=== PATIENT | female | born 1995 | race Caucasian/White ===

== ENCOUNTER 2025-08-02 09:54 | Emergency (ER) | payer OTHER, MEDICAID, SELFPAY ==
--- NOTE | 2025-08-02 09:55 | ED.FEMALEGU ---
HPI - Female Genitourinary General Chief complaint: Urogenital-Female Stated complaint: uti/yeast infection symptoms Time Seen by Provider: 08/02/25 09:54 Source: patient Mode of arrival: ambulatory Limitations: no limitations History of Present Illness HPI Narrative: Luiza is a 30-year-old female patient presenting to the clinic today with complaints of possible UTI/yeast infection x4 days. She is reporting some vaginal itching as well as burning with urination, urinary frequency, and urinary urgency. States her symptoms started 4 days ago. Had some leftover amoxicillin so she took this for 2 days. Now she is out of the antibiotics and is now complaining of vaginal itching. Denies any vaginal discharge. When asked about concerns for STI she would like testing completed. Denies any flank pain or abdominal pain. Does have pain over her bladder. No fevers, chills, body aches. No nausea or vomiting. Patient has taken azo for her symptoms. Related Data Allergies Allergy/AdvReac Type Severity Reaction Status Date / Time No Known Allergies Allergy Verified 08/02/25 10:12 Review of Systems Review of Systems: Pertinent positives per HPI. Patient denies any fever, chills, rash, headache, visual changes, dizziness, cough, runny nose, sore throat, shortness of breath, chest pain, palpitations, nausea, vomiting, diarrhea, constipation, abdominal pain PMFSH Comments At the time of my signature, I reviewed and agree with the nursing past medical, surgical, social, and family history. There is no relevant family history pertinent to the patient complaint. Exam Narrative: General: Well-developed, well nourished, in no apparent distress Head: Normocephalic, atraumatic. Cardio: Regular rate and rhythm, s1 and s2 normal, no murmur appreciated. Resp: Clear to auscultation bilaterally, no rhonchi, rales, wheezing or rubs. Abdomen: Soft, pliable, bowel sounds present in all quadrants, non-tender to palpation, no CVAT tenderness. : Deferred Course Course Emergency Course: Portions of this record may have been created with voice recognition software. Level of Care: Express Care Visit Vital Signs Vital signs: Vital Signs Temperature 36.8 C 08/02/25 10:08 Pulse Rate 73 08/02/25 10:08 Respiratory Rate 18 08/02/25 10:08 Blood Pressure 117/82 08/02/25 10:08 Pulse Oximetry 98 08/02/25 10:08 Oxygen Delivery Room Air 08/02/25 10:08 Temperature 36.8 C 08/02/25 10:08 Pulse Rate 73 08/02/25 10:08 Respiratory Rate 18 08/02/25 10:08 Blood Pressure 117/82 08/02/25 10:08 Pulse Oximetry 98 08/02/25 10:08 Oxygen Delivery Room Air 08/02/25 10:08 Vital signs reviewed MDM - Female Genitourinary MDM Narrative Medical decision making narrative: At the time of visit patient is resting comfortably on the exam table. Patient appears to be nontoxic. Complaints of possible UTI/yeast infection x4 days. She is reporting some vaginal itching as well as burning with urination, urinary frequency, and urinary urgency. States her symptoms started 4 days ago. Had some leftover amoxicillin so she took this for 2 days. Now she is out of the antibiotics and is now complaining of vaginal itching. Denies any vaginal discharge. When asked about concerns for STI she would like testing completed. Denies any flank pain or abdominal pain. Does have pain over her bladder. No fevers, chills, body aches. No nausea or vomiting. Patient has taken azo for her symptoms. Urine culture and STI testing was ordered. On exam patient has some suprapubic tenderness. Abdomen soft and pliable with normal bowel sounds. No CVAT tenderness Labs: Urine culture was sent to the lab. Chlamydia, gonorrhea, Trichomonas testing was ordered and sent to the lab via urine. Plan: I suspect patient has UTI/probable vaginal yeast infection. Prescription for Macrobid and Diflucan was sent to the pharmacy. Will wait for STI testing prior to any treatment. Supportive measures were discussed with the patient and they voiced understanding discharge instructions and agrees to treatment plan. Return precautions reviewed Differential Diagnosis Differential diagnosis: Likely urinary tract infection, cystitis and other (Vaginal yeast infection) Discharge Plan Discharge Clinical Impression: Vagina itching Urinary tract infection Qualifiers: Urinary tract infection type: acute cystitis Hematuria presence: without hematuria Qualified Code(s): N30.00 - Acute cystitis without hematuria Patient Disposition: Home Condition: Stable Instructions: Antibiotic Form, Sexually Transmitted Diseases (ED), Safe Sex Practices (ED), Urinary Tract Infection in Women (ED), Yeast Infection (ED) Additional Instructions: UTI instructions Urine culture sent to the lab Take Macrobid as prescribed Increase fluids and stay well hydrated Wipe front to back. May use wet wipes. Avoid tub baths If sexually active- pee before and after intercourse. Wear cotton panties Avoid tight clothing up against the genitals Follow up with your PCP in 1 week if symptoms persist. STI instructions We have tested you for STIs in the clinic today. Avoid any sexual activity- includes oral, anal, or vaginal intercourse until you get results back and have completed any additional recommended treatment regimens. We will contact you if testing is positive and make sure your treatment was appropriate for the type of STI. If symptoms worsen after treatment recommend reevaluation with your PCP or STI clinic Patient Language: Hungarian Prescriptions: New nitrofurantoin monohyd/m-cryst [Macrobid] 100 mg capsule 100 mg PO Q12H 5 Days Qty: 10 0RF Rx Instructions: must administer with a meal/food fluconazole 150 mg tablet 150 mg PO ONCE Qty: 2 0RF Rx Instructions: as a single dose. May repeat in 72 hours if needed. Follow-up/Referrals: UNKNOWN,DOCTOR [Primary Care Provider] Time of Disposition: 10:15 Quality NIHSS Nursing Documentation ED NIHSS nursing documentation: reviewed/agree
[2025-08-02 10:08] VITALS: BP 117/82; PULSE 73; RESP 18; TEMP 36.8; O2SAT 98
--- OUTSIDE RECORDS SUMMARY | 2025-08-02 10:28 | XMS_ITS | Clinical Summary ---
Author Organization [facility] Medic al [facility] Address [address] [place] [address] Phone Care Team Providers Care Gear Tester Name Role Phone Key Krause [facility] Primary Care Pro vider Allergies No known active allergies Medications busPIRone (BUSPAR) 5 MG Tablet Take 1 Tablet by mouth 2 times daily. 60 Tablet 1 4 Active Additional Information Patient not taking.Reported on 02/15/2025 escitalopram (LEXAPRO) 10 MG Tablet Take 1 Tablet by mouth daily. 30 Tablet 1 4 Active Additional Information Patient not taking.Reported on 02/15/2025 Active Problems Problem Noted Date Diagnosed Date Iron deficiency 04/02/2025 Chronic scapular pain 02/15/2025 Family history of cancer 02/15/2025 Other fatigue 02/15/2025 Scaly patch rash 02/15/2025 Family History Medical History Relation Name Comments Drug Abuse Father Mental Disorder, Other Mother Cancer Paternal Grandmother Relation Name Status Comments Father Alive Mother Alive Paternal Grandmother Alive Breast, had bilateral masectomy Social History Tobacco Use Types Packs/Day Years Used Date Smoking Tobacco: Former Cigarettes S tarted: 11/15/2009 Smokeless Tobacco: Never Alcohol Use Standard Drinks/Week Comments Yes 3 (1 standard drink = 0.6 oz pur e alcohol) 3 drinks per week/ Jazzy [facility] Utilities Answer Date Recorded In the past 12 months has e electric, gas, oil, or water company threatened to shut off services in your home? No 10/27/2024 Social Connection and Isolation Panel Answer Date Recorded In a typical week, how many times do you talk on the phone with family, friends, or neighbors? More than three times a week 10/27/2024 How often do you get togethe r with friends or relatives? Never 10/27/2024 How often do you attend chur ch or druze services? Never 10/27/2024 Do you belong to any clubs o r organizations such as buddhism groups, unions, fraternal or athletic groups, or school groups? No 10/27/2024 How often do you attend meet ings of the clubs or organizations you belong to? Never 10/27/2024 Are you , , di vorced, , never , or living with a partner? 10/27/2024 AUDIT-C Answer Date Recorded Q1: How often do you have a drink containing alc ohol? Monthly or less 10/27/2024 Q2: How many drinks containi ng alcohol do you have on a typical day when you are drinking? 1 or 2 10/27/2024 Q3: How often do you have si x or more drinks on one occasion? Never 10/27/2024 Overall Financial Resource Strain (CARDIA) Answe r Date Recorded How hard is it for you to pa y for the very basics like food, housing, medical care, and heating? Hard 10/27/2024 PHQ-2 Answer Date Recorded Total Score - Questions 1-9 9 10/15 [facility] - Occupational Stress Questionnaire Answer Date Recorded Do you feel stress - tense, restless, nervous, or anxious, or unable to sleep at night because your mind is troubled all the time - these days? Very much 10/27/2024 Exercise Vital Sign Answer Date Recorde d On average, how many days pe r week do you engage in moderate to strenuous exercise (like a brisk walk)? 1 day 10/27/2024 On average, how many minutes do you engage in exercise at this level? 20 min 10/27/2024 Hunger Vital Sign Answer Date Recorded Within the past 12 months, y ou worried that your food would run out before you got the money to buy more. Never true 10/27/20 24 Within the past 12 months, t he food you bought just didn't last and you didn't have money to get more. Never true 10/27/2024 PRAPARE - Transportation Answer Date Re corded In the past 12 months, has l ack of transportation kept you from medical appointments or from getting medications? No 10/15 In the past 12 months, has l ack of transportation kept you from meetings, work, or from getting things needed for daily living? No 10/27/2024 Housing Stability Vital Sign Answer [place] e Recorded In the last 12 months, was t here a time when you were not able to pay the mortgage or rent on time? No 10/27/2024 In the past 12 months, how m any times have you moved where you were living? 1 10/27/2024 At any time in the past 12 m [facility], were you homeless or living in a [facility] (including now)? No 10/27/2024 Sexually Active Control Partners Comments Yes Comments No Sex and Gender Information Value Date Recorded Sex Assigned at Not on file Legal Sex Female 10:41 AM INTERVENTION NURSE Gender Identity Not on file Sexual Orientation Not on file Last Filed Vital Signs Vital Sign Reading Time Taken Comments Blood Pressure 113/85 02/15/2025 2:19 PM CDT Pulse 89 02/15/2025 2:19 PM CDT Temperature 36.2 C (97.2 F) 02/15/2025 2:19 PM CDT Respiratory Rate 16 02/15/2025 2:19 PM CDT Oxygen Saturation 97% 02/15/2025 2:19 PM CDT Inhaled Oxygen Concentration - - Weight 62.2 kg (137 lb 3.2 oz) 02/15/2025 2:19 P M CDT Height 167.6 cm (5' 6) 10/27/2024 11:15 AM INTERVENTION NURSE Body Mass Index 22.14 10/27/2024 11:15 AM INTERVENTION NURSE Plan of Treatment Health Maintenance Due Date Last Done Comments Hepatitis C Virus (HCV) Screening 1996 TdaP Immunization 1996 Hepatitis B Immunization (1 of 3 - 19+ 3-dose series) 2015 Pap Smear 2017 Human Papillomavirus (HPV) Immunization (1 - 3-dose SCDM series) 2023 Influenza Immunization (#1) 2025 SARS-COV-2 Immunization ( season) 2025 Respiratory Syncytial Virus (RSV) Immunization (Adult) (1 - 1-dose 75+ series) 2071 Meningococcal Immunization (ACWY) Aged Out No longer eligible based on patient's age to complete this topic Pneumococcal Immunization Combined Aged Out No longer eligible based on patient's age to complete this topic Rotavirus Immunization Aged Out No lo nger eligible based on patient's age to complete this topic Insurance Care Teams Gear Tester Relationship Specialty Start Date End Date Key Krause PAC PCP - General Physician Lab Associate 10/27/24
--- OUTSIDE RECORDS SUMMARY | 2025-08-02 10:28 | XMS_ITS | Patient Health Record ---
Author Organization [facility] Address [address] [place] [address] Care Team Providers Care Seed Cleaner Operator Name Role Phone Salvador Phelan Unavailable [phone] Allergies No Known Allergies Reason For Referral No Information Social History Tobacco Use: Social History Observation Description Date Details (start date - stop date) Never Smoker NA - NA Tobacco Use/Smoking Question Answer Notes Are you a nonsmoker Section Notes: She denies any family histor y She denies any family histor y Problems Problem Type SNOMED Code ICD Code Onset Dates Problem Status W/U Status Risk Notes Problem Secondary amenorrhea (129821048) Secondary amenorrhea (N91.1) Active confirmed Plan Of Treatment Pending Test Test Name Order Date Test, Urine 07/09/2021 URINALYSIS 07/18/2021 URINALYSIS 07/09/2021 Insurance Providers Payer Name Payer Address Payer Phone Subscriber Number Group Number Insured Name Patient Relationship to Insured Coverage Start Date Coverage End Date [facility] [address] [place] [phone] [id number] Jon Erickson Spouse - patient is the spouse of the insured Medical (General) History Medical History History ICD Code 2 pre-mature births 34 & 28 weeks Surgical History Surgery Date(Month/Year) Hospitalization History Reason Date(Month/Year)
[2025-08-02 20:14] LABS: Trichomonas Vag PCR NOT DETECTED (NOT DETECTE)
== END 2025-08-02 10:37 | disposition home or self-care (01) ==
PROVIDERS: Emergency Provider Nurse Practitioner Family
DX: N89.8 Other specified noninflammatory disorders of vagina (principal); N30.00 Acute cystitis without hematuria; Z11.3 Encounter for screening for infections with a predominantly sexual mode of transmission
CPT/HCPCS: 87077; 87086; 87186; 87491; 87591; 87661; 99203; G0463

== ENCOUNTER 2025-08-21 14:12 | Emergency (ER) | payer OTHER, MEDICAID, SELFPAY ==
[2025-08-21 14:17] VITALS: BP 114/78; PULSE 102; RESP 16; TEMP 37.1; O2SAT 100
[2025-08-21 14:39] LABS: EDCOVIDSCREEN Negative (Negative); EDINFLUASCREEN Negative (Negative); EDINFLUBSCREEN Negative (Negative); EDSTREPNEGPOS1 Negative (Negative)
--- OUTSIDE RECORDS SUMMARY | 2025-08-21 15:07 | XMS_ITS | Patient Health Record ---
Author Organization [facility] Address [address] [place] [address] Care Team Providers Care Wire Drawing Machine Operator Name Role Phone Salvador Phelan Unavailable [phone] Allergies No Known Allergies Reason For Referral [...] W/U Status Risk Notes Problem Secondary amenorrhea (485979675) Secondary amenorrhea (N91.1) Active confirmed Plan Of Treatment Pending Test Test Name Order Date Test, Urine 07/09/2021 URINALYSIS 07/18/2021 URINALYSIS 07/09/2021 Insurance Providers Payer Name Payer Address Payer Phone Subscriber Number Group Number Insured Name Patient Relationship to Insured Coverage Start Date Coverage End Date [facility] [address] [place] [phone] [id number] Jon Erickson Spouse - patient is the spouse of the insured Medical (General) History Medical History History ICD Code 2 pre-mature births 34 & 28 weeks Surgical History Surgery Date(Month/Year) Hospitalization History Reason Date(Month/Year)
--- OUTSIDE RECORDS SUMMARY | 2025-08-21 15:07 | XMS_ITS | Clinical Summary ---
Author Organization [facility] Medic al [facility] Address [address] [place] [address] Phone Care Team Providers Care Brand Leader Name Role Phone eKy Krause [facility] Primary Care Pro vider Allergies No known [...] e alcohol) 3 drinks per week/ Jazzy [facility] Utilities Answer Date Recorded In the [...] often do you attend chur ch or restorationism services? Never 10/27/2024 Do you belong to any clubs o r organizations such as mormonism groups, unions, fraternal or athletic groups, or [...] Total Score - Questions 1-9 9 10/15 [facility] - Occupational [...] any time in the past 12 m [facility], were you homeless or living in a long-term (including now)? No 10/27/2024 Sexually Active Control Partners Comments Yes Comments No Sex and Gender Information Value Date Recorded Sex Assigned at Not on file Legal Sex Female 10:[address] FORMS Gender Identity Not on file Sexual Orientation [...] 167.6 cm (5' 6) 10/27/2024 11:[address] FORMS Body Mass Index 22.14 10/27/2024 11:[address] FORMS Plan of Treatment Health Maintenance Due Date [...] to complete this topic Insurance Care Teams Brand Leader Relationship Specialty Start Date End Date Key Krause PAC PCP - General Physician Swing Manager 10/27/24
--- NOTE | 2025-08-21 16:26 | ED_ITS ---
HPI - General Adult General Chief complaint: Upper Respiratory Infection Stated complaint: chills/body aches/uti Source: patient Mode of arrival: ambulatory Limitations: no limitations History of Present Illness HPI narrative: Patient presents for evaluation of respiratory symptoms. She reports sore throat, cough generalized body aches and fever. She states her symptoms have been present for about a day. Her family members have had similar symptoms. This morning she developed urinary frequency and dysuria. She has a history of UTIs and this feels similar. She has been taking Azo for her symptoms. She d enies any abdominal pain or low back pain. No vaginal discharge. LMP now. She states her children were given abx for tonsillitis. She is concerned about a cold sore to the left lower lip. Related Data Allergies Allergy/AdvReac Type Severity Reaction Status Date / Time No Known Allergies Allergy Verified 08/21/25 14:28 Review of Systems Review of Systems: CONSTITUTIONAL: Reports fever. Denies chills, or sweats. EYES: Denies visual changes, redness, or discharge. ENT: Reports sinus congestion and sore throat. Reports cold sore to left lower lip CARDIOVASCULAR: Denies chest pain, palpitations, or edema. RESPIRATORY: Reports cough. Denies SOB GASTROINTESTINAL: Denies abdominal pain, nausea, vomiting, or diarrhea. GENITOURINARY: Reports dysuria and urinary frequency SKIN: Denies rash or itching. MUSCULOSKELETAL: Reports generalized body aches NEUROLOGIC: Denies headache, numbness, dizziness, or weakness. PSYCHIATRIC: Denies anxiety or depression. PMFSH Past Medical History Medical History Recurrent UTI Surgical History Surgical History No pertinent past surgical history Family History Family History Mother Family history unknown Social History Social History Living arrangements: with family Gender identity (if verbalized by the patient): Female Spiritual care concerns: No Exam Narrative: GENERAL: Well-appearing, well-nourished, and in no acute distress. HEAD: Normocephalic, atraumatic. EYES: PERRLA and EOMI. ENT: Nares clear, no rhinorrhea or epistaxis. Mucous membranes moist. Oropharynx without tonsillar hypertrophy exudate. There is a veiscular lesion noted to the left lower lip. Bilateral TMs pearly jolley nonbulging. NECK: Supple. No adenopathy or masses. No carotid bruits or JVD CHEST: Clear to auscultation. No respiratory distress. No wheezes rales or rhonchi HEART: Regular rate and rhythm. No murmur heard. Normal peripheral pulses. ABDOMEN: Soft, nontender, nondistended, normal active bowel sounds. BACK: No CVA tenderness EXTREMITIES: Normal range of motion. No edema. SKIN: Warm, dry, no rash. NEURO: No focal deficits. Alert and oriented x3. PSYCH: Normal mood and affect. Course Course Emergency Course: This is a 30-year-old female who presented for evaluation of respiratory symptoms. Exam is consistent with viral syndrome. Her strep, COVID, influenza were all negative. In terms of her urinary symptoms, we are unable to run UA due to recent Azo use. Will send urine for culture. Will dc with keflex. She would like valtrex for HSV outbreak. She should follow-up with her primary care provider and go to the ER for worsening symptoms. Patient in agreement with plan of care. Level of Care: Express Care Visit Vital Signs Vital signs: Vital Signs Temperature 37.1 C 08/21/25 14:17 Pulse Rate 102 H 08/21/25 14:17 Respiratory Rate 16 08/21/25 14:17 Blood Pressure 114/78 08/21/25 14:17 Pulse Oximetry 100 08/21/25 14:17 Oxygen Delivery Room Air 08/21/25 14:17 Temperature 37.1 C 08/21/25 14:17 Pulse Rate 102 H 08/21/25 14:17 Respiratory Rate 16 08/21/25 14:17 Blood Pressure 114/78 08/21/25 14:17 Pulse Oximetry 100 08/21/25 14:17 Oxygen Delivery Room Air 08/21/25 14:17 Medical Decision Making Vital Signs Vital Signs: Vital Signs Temperature 37.1 C 08/21/25 14:17 Pulse Rate 102 H 08/21/25 14:17 Respiratory Rate 16 08/21/25 14:17 Blood Pressure 114/78 08/21/25 14:17 Pulse Oximetry 100 08/21/25 14:17 Oxygen Delivery Room Air 08/21/25 14:17 Temperature 37.1 C 08/21/25 14:17 Pulse Rate 102 H 08/21/25 14:17 Respiratory Rate 16 08/21/25 14:17 Blood Pressure 114/78 08/21/25 14:17 Pulse Oximetry 100 08/21/25 14:17 Oxygen Delivery Room Air 08/21/25 14:17 Lab Data Labs: Lab Results 08/21/25 Range/Units 14:37 POC Influenza A Ag Negative (Negative) POC Influenza B Ag Negative (Negative) POC SARS CoV-2 Ag Negative (Negative) POC Grp A Strep Screen Negative (Negative) Discharge Plan Discharge Clinical Impression: UTI (urinary tract infection), Upper respiratory infection, viral, Herpes simplex Patient Disposition: Home Condition: Stable Instructions: Antibiotic Form, Urinary Tract Infection in Women (DC), Upper Respiratory Infection (ED), Oral Herpes Infection (ED) Patient Language: Mozambican Prescriptions: New cephalexin 500 mg capsule 500 mg PO Q12H Qty: 14 0RF valacyclovir [Valtrex] 1 gram tablet 2,000 mg PO BID 1 Days Qty: 4 0RF Follow-up/Referrals: Alex Duvall MD [Physician, Family Practice] Time of Disposition: 14:43
== END 2025-08-21 14:48 | disposition home or self-care (01) ==
PROVIDERS: Emergency Provider Nurse Practitioner
DX: N39.0 Urinary tract infection, site not specified (principal); J06.9 Acute upper respiratory infection, unspecified; B97.89 Other viral agents as the cause of diseases classified elsewhere; B00.9 Herpesviral infection, unspecified; Z20.822 Contact with and (suspected) exposure to COVID-19
CPT/HCPCS: 87077; 87081; 87086; 87147; 87186; 87426; 87804; 87880; 99213; G0463